=== PATIENT | female | born 1940 | race Caucasian/White ===

== ENCOUNTER 2018-03-20 12:40 | Outpatient (REF) | payer MEDICARE, OTHER, SELFPAY ==
[2018-03-20 21:51] LABS: Anion Gap 9.6 mmol/L (3-11); BUN 19 mg/dL (7-18); CO2 26.4 mmol/L (21.0-32.0); CREATININE 1.23 mg/dL (0.55-1.02); Calcium 9.1 mg/dL (8.5-10.1); Chloride 105 mmol/L (98-107); Cholesterol 207 mg/dL (50-200); Estimated GFR 42.57 (mL/min/1.73m2); Glucose 88 mg/dL (70-100); HDL Cholesterol 45 mg/dL (40-60); LDL CHOLESTEROL 119 mg/dL (<100); Potassium 4.5 mmol/L (3.5-5.1); Sodium 141 mmol/L (136-145); TSH 2.01 uIU/mL (0.358-3.74); Triglyceride 312 mg/dL (30-150)
== END 2018-03-20 13:00 ==
LOC: NCHCN 12:40
PROVIDERS: PCP Family Medicine; Visit Provider Internal Medicine
DX: E03.9 Hypothyroidism, unspecified (principal); F32.9 Major depressive disorder, single episode, unspecified
CPT/HCPCS: 80048; 80061; 83721; 84443

== ENCOUNTER 2018-05-24 13:46 | Outpatient (REF) | payer MEDICARE, OTHER, SELFPAY ==
[2018-05-24 22:05] LABS: Abs Immature Grans 0.01 k/cumm (0.0-0.09); Absolute Basophil Count 0.04 k/cumm (0.0-0.2); Absolute Eosinophil Count 0.16 k/cumm (0.0-0.7); Absolute Lymphocyte Count 1.23 k/cumm (1.2-3.4); Absolute Monocyte Count 0.52 k/cumm (0.11-0.7); Absolute Neutrophil Count 2.85 k/cumm (1.2-6.7); Basophils % 0.8; Eosinophils % 3.3; HCT 41.3 % (36.0-46.0); HGB 13.7 g/dL (12.0-15.5); Immature Grans % 0.2; Lymphocytes % 25.6; Mean Corp. HGB Concentration 33.2 g/dL (32.0-36.0); Mean Corpuscular Hemoglobin 30.4 pg (27.0-33.0); Mean Corpuscular Volume 91.8 fL (80-95); Mean Platelet Volume 9.9 fL (8.0-11.0); Monocytes % 10.8; Neutrophils % 59.3; Platelet Count 275 x1000/uL (130-400); White Blood Cell Count 4.81 k/cumm (4.4-10.8)
[2018-05-24 22:52] LABS: Folate > 20.0 ng/mL (8.6-20.0); Vitamin B12 400 pg/mL (193-986)
[2018-05-25 06:23] LABS: Vitamin D 25 Total 44.2 ng/ml (30-100)
== END 2018-05-24 14:06 ==
LOC: NCHCN 13:46
PROVIDERS: PCP Family Medicine; Visit Provider Nurse Practitioner Family
DX: F32.9 Major depressive disorder, single episode, unspecified (principal); F41.1 Generalized anxiety disorder; R45.851 Suicidal ideations; Z86.59 Personal history of other mental and behavioral disorders
CPT/HCPCS: 82306; 82607; 82746; 85025

== ENCOUNTER 2018-11-07 17:50 | Outpatient (REF) | payer MEDICARE, OTHER, SELFPAY ==
[2018-11-07 22:09] LABS: HCT 40.3 % (36.0-46.0); HGB 13.2 g/dL (12.0-15.5); Mean Corp. HGB Concentration 32.8 g/dL (32.0-36.0); Mean Corpuscular Volume 91.6 fL (80-95); Mean Platelet Volume 10.1 fL (8.0-11.0); Platelet Count 251 x1000/uL (130-400); RBC Distribution Width 13.4 % (11.7-14.6)
[2018-11-07 22:43] LABS: BUN 24 mg/dL (7-18); CREATININE 1.02 mg/dL (0.55-1.02); Calcium 8.9 mg/dL (8.5-10.1); Chloride 107 mmol/L (98-107); Estimated GFR 52.69 (mL/min/1.73m2); Glucose 115 mg/dL (70-100); Magnesium 2.1 mg/dL (1.8-2.4); NT-proBNP 90 pg/mL; Potassium 4.4 mmol/L (3.5-5.1); Sodium 143 mmol/L (136-145); TSH 1.08 uIU/mL (0.358-3.74)
== END 2018-11-07 18:10 ==
LOC: NCHCN 17:50
PROVIDERS: PCP Family Medicine; Visit Provider Registered Nurse
DX: E03.9 Hypothyroidism, unspecified (principal); R06.00 Dyspnea, unspecified; N19 Unspecified kidney failure; E78.2 Mixed hyperlipidemia
CPT/HCPCS: 80048; 85027; 83735; 83880; 84443

== ENCOUNTER 2019-03-26 12:06 | Outpatient (REF) | payer MEDICARE, OTHER, SELFPAY ==
[2019-03-26 21:59] LABS: Calculated LDL 69 mg/dL; Cholesterol 145 mg/dL (50-200); HDL Cholesterol 42 mg/dL (40-60); Triglyceride 170 mg/dL (30-150)
== END 2019-03-26 12:26 ==
LOC: NCHCO 12:06
PROVIDERS: PCP Family Medicine; Visit Provider Registered Nurse
DX: Z79.899 Other long term (current) drug therapy (principal); R69 Illness, unspecified
CPT/HCPCS: 80061; 83735

== ENCOUNTER 2020-01-16 22:23 | Outpatient (REF) | payer MEDICARE, OTHER, SELFPAY ==
[2020-01-16 21:32] LABS: Hemoglobin A1C 5.6 % (3.8-5.6)
[2020-01-16 21:50] LABS: ALT 39 U/L (14-59); AST 25 U/L (15-37); Albumin 4.4 g/dL (3.4-5.0); Alkaline Phosphatase 65 U/L (46-116); Anion Gap 9.7 mmol/L (3-11); BUN 20 mg/dL (7-18); Bilirubin, Total 0.3 mg/dL (0.2-1.0); CO2 27.3 mmol/L (21.0-32.0); CREATININE 1.05 mg/dL (0.55-1.02); Calcium 9.3 mg/dL (8.5-10.1); Chloride 104 mmol/L (98-107); Estimated GFR 50.82 (mL/min/1.73m2); Glucose 97 mg/dL (74-106); Potassium 4.6 mmol/L (3.5-5.1); Sodium 141 mmol/L (136-145); TSH 1.71 uIU/mL (0.36-3.74); Total Protein 7.2 g/dL (6.4-8.2)
== END 2020-01-16 22:43 ==
LOC: NCHCN 22:23
PROVIDERS: PCP Family Medicine; Visit Provider Registered Nurse
DX: E03.9 Hypothyroidism, unspecified (principal); E78.2 Mixed hyperlipidemia
CPT/HCPCS: 80053; 83036; 84443

== ENCOUNTER 2020-02-22 16:23 | Outpatient (REF) | payer MEDICARE, OTHER, SELFPAY | END 2020-02-22 16:43 | LOC: NCHCN 16:23 | PROVIDERS: PCP Family Medicine; Visit Provider Registered Nurse | DX: R82.998 Other abnormal findings in urine (principal); Z87.440 Personal history of urinary (tract) infections | CPT/HCPCS: 87077; 87086; 87186 ==

== ENCOUNTER 2020-04-02 18:10 | Outpatient (REF) | payer MEDICARE, OTHER, SELFPAY ==
[2020-04-02 22:39] LABS: Bilirubin Negative (Negative); Blood Negative (Negative); Clarity Clear (Clear); Glucose Negative (Negative); Ketones Negative (Negative); Leukocyte Esterase Small (Negative); Nitrite Positive (Negative); Specific Gravity >= 1.030 (1.005-1.025); Urobilinogen 0.2 EU/dL (Up TO 0.2); pH 5.5 (5-8)
[2020-04-02 22:50] LABS: Bacteria Few HPF (Negative); C & S Indicated? Yes; Casts Negative LPF (Negative); Crystals Negative HPF (Negative); Epithelial Cells Few HPF (Negative); Mucus Negative (Negative); RBC Negative HPF (0-2); WBC >50 HPF (0-5)
== END 2020-04-02 18:30 ==
LOC: NCHCN 18:10
PROVIDERS: PCP Family Medicine; Visit Provider Registered Nurse
DX: N95.2 Postmenopausal atrophic vaginitis (principal); R82.998 Other abnormal findings in urine; Z87.440 Personal history of urinary (tract) infections
CPT/HCPCS: 87077; 81003; 81015; 87086; 87186

== ENCOUNTER 2020-05-01 15:06 | Outpatient (REF) | payer MEDICARE, OTHER, SELFPAY ==
[2020-05-01 21:31] LABS: BUN 22 mg/dL (7-18); CREATININE 1.11 mg/dL (0.55-1.02); Chloride 106 mmol/L (98-107); Estimated GFR 47.66 (mL/min/1.73m2); Glucose 102 mg/dL (74-106); Potassium 4.7 mmol/L (3.5-5.1); Sodium 143 mmol/L (136-145)
== END 2020-05-01 15:26 ==
LOC: NCHCN 15:06
PROVIDERS: PCP Family Medicine; Visit Provider Registered Nurse
DX: I10 Essential (primary) hypertension (principal)
CPT/HCPCS: 80048

== ENCOUNTER 2020-10-15 15:30 | Outpatient (REF) | payer MEDICARE, OTHER, SELFPAY ==
[2020-10-15 22:23] LABS: BUN 23 mg/dL (7-18); CREATININE 1.2 mg/dL (0.55-1.02); Estimated GFR 43.56 (mL/min/1.73m2)
== END 2020-10-15 15:31 | disposition home or self-care (01) ==
LOC: NCHCN 15:30
PROVIDERS: PCP Family Medicine; Visit Provider Registered Nurse
DX: N19 Unspecified kidney failure (principal); I10 Essential (primary) hypertension
CPT/HCPCS: 84520; 82565

== ENCOUNTER 2021-02-25 14:56 | Outpatient (REF) | payer MEDICARE, OTHER, SELFPAY ==
[2021-02-25 22:14] LABS: HCT 38.5 % (36.0-46.0); HGB 12.7 g/dL (11.2-15.7); MCH 30.5 pg (27.0-33.0); MCV 92.3 fL (80-95); MPV 9.6 fL (8.0-11.0); Platelet Count 269 10^3/uL (130-400); RBC 4.17 10^6/uL (3.93-5.22); RDW 12.4 % (11.7-14.6); RDW-SD 41.9 fL; WBC 6.69 10^3/uL (4.4-10.8)
[2021-02-25 22:39] LABS: ALT 26 U/L (14-59); AST 16 U/L (15-37); Alkaline Phosphatase 50 U/L (46-116); Anion Gap 7.9 mmol/L (3-11); BUN 23 mg/dL (7-18); Bilirubin, Total 0.3 mg/dL (0.2-1.0); CO2 28.1 mmol/L (21.0-32.0); CREATININE 1.1 mg/dL (0.55-1.02); Calcium 9.2 mg/dL (8.5-10.1); Chloride 108 mmol/L (98-107); Estimated GFR 48.04 (mL/min/1.73m2); Glucose 95 mg/dL (74-106); Lipase 183 U/L (73-393); Potassium 4.3 mmol/L (3.5-5.1); Sodium 144 mmol/L (136-145); Total Protein 6.7 g/dL (6.4-8.2)
[2021-02-25 22:53] LABS: Hemoglobin A1C 5.4 % (<5.7)
== END 2021-02-25 14:57 | disposition home or self-care (01) ==
LOC: NCHCN 14:56
PROVIDERS: PCP Family Medicine; Referring Provider Registered Nurse; Visit Provider Registered Nurse
DX: E66.9 Obesity, unspecified (principal); K21.9 Gastro-esophageal reflux disease without esophagitis; R10.9 Unspecified abdominal pain; R11.0 Nausea
CPT/HCPCS: 80053; 83690; 85027; 83036

== ENCOUNTER 2021-03-12 16:24 | Outpatient (REF) | payer MEDICARE, OTHER, SELFPAY ==
[2021-03-12 21:23] LABS: TSH 1.78 uIU/mL (0.36-3.74)
== END 2021-03-12 16:25 | disposition home or self-care (01) ==
LOC: NCHCN 16:24
PROVIDERS: PCP Family Medicine; Visit Provider Registered Nurse
DX: E03.9 Hypothyroidism, unspecified (principal)
CPT/HCPCS: 84443

== ENCOUNTER 2021-10-14 19:09 | Outpatient (REF) | payer MEDICARE, OTHER, SELFPAY ==
[2021-10-14 21:31] LABS: ALT 24 U/L (14-59); AST 17 U/L (15-37); Albumin 4.3 g/dL (3.4-5.0); Alkaline Phosphatase 64 U/L (46-116); Anion Gap 7.2 mmol/L (3-11); BUN 21 mg/dL (7-18); Bilirubin, Total 0.3 mg/dL (0.2-1.0); CO2 26.8 mmol/L (21.0-32.0); CREATININE 1.1 mg/dL (0.55-1.02); Calcium 9.6 mg/dL (8.5-10.1); Chloride 107 mmol/L (98-107); Estimated GFR 48.04 (mL/min/1.73m2); Glucose 97 mg/dL (74-106); Potassium 4.6 mmol/L (3.5-5.1); Sodium 141 mmol/L (136-145); Total Protein 7.1 g/dL (6.4-8.2)
== END 2021-10-14 19:10 | disposition home or self-care (01) ==
LOC: NCHCN 19:09
PROVIDERS: PCP Family Medicine; Visit Provider Registered Nurse
DX: N18.9 Chronic kidney disease, unspecified (principal)
CPT/HCPCS: 80053

== ENCOUNTER 2022-05-19 23:43 | Outpatient (REF) | payer MEDICARE, OTHER, SELFPAY ==
[2022-05-19 21:55] LABS: HCT 39.8 % (36.0-46.0); MCH 30.5 pg (27.0-33.0); MCHC 32.7 % (32.0-36.0); MCV 93 fL (80-95); MPV 9.7 fL (8.0-11.0); Platelet Count 256 10^3/uL (130-400); RBC 4.26 10^6/uL (3.93-5.22); RDW 12.5 % (11.7-14.6); RDW-SD 42.7 fL; WBC 7.65 10^3/uL (4.4-10.8)
[2022-05-19 22:20] LABS: Anion Gap 6.2 mmol/L (3-11); BUN 22 mg/dL (7-18); CO2 29.8 mmol/L (21.0-32.0); CREATININE 1.1 mg/dL (0.55-1.02); Calcium 9.5 mg/dL (8.5-10.1); Calculated LDL 57 mg/dL (<100); Chloride 104 mmol/L (98-107); Cholesterol 156 mg/dL (<200); Estimated GFR 51.11 (mL/min/1.73m2); Glucose 88 mg/dL (74-106); HDL Cholesterol 42 mg/dL (40-60); Potassium 4.6 mmol/L (3.5-5.1); Sodium 140 mmol/L (136-145); TSH 2.54 uIU/mL (0.36-3.74); Triglyceride 286 mg/dL (<150)
[2022-05-19 23:20] LABS: Vitamin D 25 Total 46.6 ng/mL (30-100)
== END 2022-05-19 23:44 | disposition home or self-care (01) ==
LOC: NCHCN 23:43
PROVIDERS: PCP Family Medicine; Visit Provider Registered Nurse
DX: I10 Essential (primary) hypertension (principal); E78.2 Mixed hyperlipidemia; R53.83 Other fatigue; R00.0 Tachycardia, unspecified; Z79.899 Other long term (current) drug therapy
CPT/HCPCS: 80048; 80061; 82306; 85027; 84443

== ENCOUNTER 2022-08-27 15:06 | Outpatient (REF) | payer MEDICARE, OTHER, SELFPAY ==
[2022-08-27 15:00] LABS: HCT 41.1 % (36.0-46.0); HGB 13.5 g/dL (11.2-15.7); MCH 29.9 pg (27.0-33.0); MCHC 32.8 % (32.0-36.0); MCV 91 fL (80-95); MPV 9.6 fL (8.0-11.0); Platelet Count 269 10^3/uL (130-400); RBC 4.52 10^6/uL (3.93-5.22); RDW 12.7 % (11.7-14.6); RDW-SD 42.1 fL; WBC 5.55 10^3/uL (4.4-10.8)
[2022-08-27 15:35] LABS: Ferritin 89 ng/mL (8-252)
[2022-08-27 15:38] LABS: Iron 80 ug/dL (50-170); Total Iron Binding Capacity 318 ug/dL (250-450); Transferrin Sat 25 % (15-50)
== END 2022-08-27 15:07 | disposition home or self-care (01) ==
LOC: NCHCN 15:06
PROVIDERS: PCP Family Medicine; Visit Provider Registered Nurse
DX: R19.4 Change in bowel habit (principal); R53.83 Other fatigue; R00.0 Tachycardia, unspecified; R06.02 Shortness of breath; R10.9 Unspecified abdominal pain
CPT/HCPCS: 85027; 82728; 83540; 83550

== ENCOUNTER 2023-10-11 17:38 | Outpatient (REF) | payer MEDICARE, OTHER, SELFPAY ==
[2023-10-11 21:25] LABS: Anion Gap 12.9 mmol/L (3-11); BUN 23 mg/dL (7-18); CO2 23.1 mmol/L (21.0-32.0); CREATININE 1.2 mg/dL (0.55-1.02); Calcium 9.5 mg/dL (8.5-10.1); Chloride 106 mmol/L (98-107); Estimated GFR 45.76 (mL/min/1.73m2); Glucose 115 mg/dL (74-106); Potassium 4.8 mmol/L (3.5-5.1); Sodium 142 mmol/L (136-145)
== END 2023-10-11 17:39 | disposition home or self-care (01) ==
LOC: NCHCN 17:38
PROVIDERS: PCP Family Medicine; Visit Provider Family Medicine
DX: I10 Essential (primary) hypertension (principal); E03.9 Hypothyroidism, unspecified
CPT/HCPCS: 80048; 84443

== ENCOUNTER 2024-09-27 13:26 | Outpatient (REF) | payer MEDICARE, OTHER, SELFPAY ==
[2024-09-27 21:30] LABS: Anion Gap 9.9 mmol/L (3-11); BUN 23 mg/dL (7-18); CO2 26.1 mmol/L (21.0-32.0); CREATININE 1.3 mg/dL (0.55-1.02); Calcium 9.7 mg/dL (8.5-10.1); Chloride 108 mmol/L (98-107); Estimated GFR 41.31 (mL/min/1.73m2); Glucose 113 mg/dL (74-106); Potassium 4.6 mmol/L (3.5-5.1); Sodium 144 mmol/L (136-145)
== END 2024-09-27 13:27 | disposition home or self-care (01) ==
LOC: NCHCN 13:26
PROVIDERS: PCP Family Medicine; Visit Provider Family Medicine
DX: N18.9 Chronic kidney disease, unspecified (principal)
CPT/HCPCS: 80048

== ENCOUNTER 2024-10-09 16:01 | Outpatient (REF) | payer MEDICARE, OTHER, SELFPAY ==
[2024-10-09 22:04] LABS: Calculated LDL 46 mg/dL (<100); Cholesterol 140 mg/dL (<200); HDL Cholesterol 41 mg/dL (>or=50); TSH 1.62 uIU/mL (0.36-3.74); Triglyceride 269 mg/dL (<150)
== END 2024-10-09 16:02 | disposition home or self-care (01) ==
LOC: NCHCN 16:01
PROVIDERS: PCP Family Medicine; Visit Provider Family Medicine
DX: E03.9 Hypothyroidism, unspecified (principal); E78.2 Mixed hyperlipidemia
CPT/HCPCS: 80061; 84443